=== PATIENT | male | born 1950 | race Caucasian/White ===

== ENCOUNTER 2018-04-29 11:19 | Emergency (ER) | payer MEDICARE, BC ==
[2018-04-29] MEDS ORDERED: Diltiazem IV* 5 MG/ML 5 ML VIAL (for loading dose/IV Push) (25 MG) IV SLOW PU ONE (11:36)
[2018-04-29] MEDS ORDERED: Diltiazem IV VIAL* 125 MG in NS 0.9% 100 ML* 100 ML IVPB ONE (11:36)
[2018-04-29] MEDS ORDERED: Apixaban* 5 MG TAB PO ONE (11:37)
--- NOTE | 2018-04-29 11:41 | ED ---
HPI Cardiac - HPI Summary HPI Summary: Patient is a 67 y/o M presenting to ED with complaints of palpitations onsetting last night. He states he was lying down when Sx onset. PMHx of afib x4 in the past 25 years. Hx of cardioversion for last episode of afib. This resolved afib. No Hx of ablation reported. He states that Sx were still present this morning. He measured his pulse this morning using home machine, went to PCP after it was noted he was tachycardic. PCP took EKG, stated that he "didn't like it", sent patient to ED. Chest pain, weakness, fatigue, diaphoresis is denied. He states that present Sx are similar to afib. Patient took metoprolol, amlodipine, losartan. On triage, pain is rated 0/10, nothing is noted to aggravate/alleviate Sx. Home medications, allergies, and nurses note reviewed. - History of Current Complaint Chief Complaint: EDDysrhythmPalp Stated Complaint: LOW BLOOD FLOW TO HEART Time Seen by Provider: 04/29/18 11:32 Hx Obtained From: Patient Onset/Duration: Started Days Ago - onset last night, Still Present Timing: Constant, Lasting Days - last night Current Severity: None Pain Intensity: 0 Pain Scale Used: 0-10 Numeric - 0/10 Chest Pain Radiates: No Character: Other: - palpitations Aggravating Factor(s): Nothing Alleviating Factor(s): Nothing Associated Signs and Symptoms: Positive: Palpitations, Other: - NEGATIVE - FATIGUE. Negative: Chest Pain, Weakness, Diaphoresis - Allergy/Home Medications Allergies/Adverse Reactions: Allergies Allergy/AdvReac Type Severity Reaction Status Date / Time No Known Allergies Allergy Verified 04/01/16 07:59 PMH/Surg Hx/FS Hx/Imm Hx Cardiovascular History: Reports: Hx Atrial Fibrillation, Hx Hypertension - CONTROL WITH MEDS History: Reports: Other Problems/Disorders - ENLARGE PROSTATE Musculoskeletal History: Reports: Hx Arthritis - BILATERAL FEET Sensory History: Reports: Hx Contacts or Glasses - READING GLASSES Denies: Hx Hearing Aid Opthamlomology History: Reports: Hx Contacts or Glasses - READING GLASSES Neurological History: Reports: Hx Nerve Disease - BILATERAL FEET NEUROPATHY - Surgical History Surgery Procedure, Year, and Place: 2012 TURP, [facility] Hx Anesthesia Reactions: No Infectious Disease History: No Infectious Disease History: Denies: Traveled Outside the [place] in Last 30 Days - Family History Known Family History: Negative: Blood Disorder - Social History Alcohol Use: Daily Substance Use Type: Reports: None Smoking Status (MU): Never Smoked Tobacco Review of Systems Positive: Other - NEGATIVE - WEAKNESS . Negative: Fatigue, Skin Diaphoresis Positive: Palpitations. Negative: Chest Pain All Other Systems Reviewed And Are Negative: Yes Physical Exam - Summary Physical Exam Summary: Appearance: Well appearing, no pain distress Skin: warm, dry, reflects adequate perfusion Head/face: normal Eyes: EOMI, FERNANDEZ ENT: mucous membranes moist Neck: supple, non-tender Respiratory: CTA, breath sounds present Cardiovascular: irregularly irregular and tachycardic, pulses symmetrical Abdomen: non-tender, soft Bowel Sounds: present Musculoskeletal: normal, strength/ROM intact Neuro: normal, sensory motor intact, A&Ox3 Triage Information Reviewed: Yes Vital Signs On Initial Exam: Initial Vitals Temp Pulse Resp BP Pulse Ox 98.3 F 128 17 155/77 99 04/29/18 11:22 04/29/18 11:22 04/29/18 11:22 04/29/18 11:22 04/29/18 11:22 Vital Signs Reviewed: Yes Procedures - Procedure Summary Procedure Summary: Procedural sedation and synchronized cardioversion: Reason: Cardioversion of atrial flutter Description: The patient was formally consented and a timeout was performed. The patient was placed on full cardiopulmonary monitoring eluding end-tidal CO2 monitoring. He was placed on oxygen. He was given 75 mg of propofol intravenously which created adequate sedation for cardioversion. Synchronized cardioversion was performed with a single shock at 100 J with anterior posterior pad placement. This was successful in converting him into normal sinus rhythm with a rate of 60. Total sedation time of 1 minute. He recovered very quickly and was able to be discharged shortly thereafter. There were no complications and he tolerated this well. - Additional Procedures Additional Procedures: cardioversion/defib - CARDIOVERSION RESULTED IN CONVERSION TO NSR Diagnostics - Vital Signs Vital Signs Temp Pulse Resp BP Pulse Ox 04/29/18 11:22 98.3 F 128 17 155/77 99 - Laboratory Result Diagrams: 04/29/18 10:46 04/29/18 10:46 Lab Statement: Any lab studies that have been ordered have been reviewed, and results considered in the medical decision making process. - Radiology CXR Radiology Interpretation Completed By: Radiologist Summary of Radiographic Findings: IMPRESSION: NO ACTIVE CARDIOPULMONARY DISEASE IS NOTED. THIS REPORT WAS REVIEWED BY ED PHYSICIAN. - EKG 1126 Cardiac Rate: Other Rate - rate of 127 BPM EKG Rhythm: Atrial Fibrillation - /atrial flutter ST Segment: Non-Specific Summary of EKG Findings: EKG showed atrial flutter/afib with rate of 127 BPM, normal axis, normal intervals, non-specific ST. 1204 Cardiac Rate: Other Rate - rate of 127 BPM EKG Rhythm: Atrial Flutter ST Segment: Non-Specific Summary of EKG Findings: EKG showed aflutter with rate of 127 BPM, normal axis, normal interval, non-specific ST 1207 Cardiac Rate: NL - rate of 64 BPM EKG Rhythm: Sinus Rhythm ST Segment: Normal Summary of EKG Findings: EKG after cardioversion showed NSR with rate of 64 BPM , normal axis, normal interval, normal ST Re-Evaluation - Re-Evaluation First Eval Re-Evaluation Time: 12:05 Change: Improved Comment: Patient was cardioverted with informed consent, patient converted to NSR. He will be discharged to home and follow up with principal systems architect, patient is agreeable with this. Disposition - Course Course Of Treatment: Nurse's notes reviewed. Patient with EKG appearing as atrial fibrillation/flutter it is also rapid. Rate controlled with diltiazem without any effect. Time of onset is known to be last evening. History of same in the past. Single dose of oral anticoagulant and cardioversion performed under conscious sedation. This cardioverted him into normal sinus rhythm. He did have slight bump in troponin with a creatinine of 1.22. Patient has no lingering chest pain, shortness of breath. There is no congestive heart failure. He is discharged to follow closely with primary care physician and principal systems architect. Will continue on his outpatient metoprolol. - Differential Dx - Cardiopulmonary Differential Diagnoses - Cardiopulmonary: Other - Atrial fibrillation, atrial flutter, SVT, V. tach - Diagnoses Provider Diagnoses: Atrial flutter, Elevated troponin I level - Critical Care Time Critical Care Time: 30-74 min - Critical care time is exclusive of separately billable procedures Discharge - Sign-Out/Discharge Documenting (check all that apply): Patient Departure - discharge - Discharge Plan Condition: Improved Disposition: HOME Patient Education Materials: Atrial Flutter (ED) Referrals: Didier Robertson MD [Primary Care Provider] - Christian Pritchett MD [Medical Doctor] - Additional Instructions: Call today to schedule follow-up with Dr. Pritchett. Avoid alcohol, caffeine. Get plenty of sleep. Continue to take your metoprolol twice a day. Return if worse , palpitations, new symptoms or other concerns. - Billing Disposition and Condition Condition: IMPROVED Disposition: Home - Attestation Statements Document Initiated by Cuauhtemoc: Yes Documenting Scribe: ANNETTE GIANG Provider For Whom Cuauhtemoc is Documenting (Include Credential): PRAVEEN ANTUNEZ MD Scribe Attestation: I, ANNETTE GIANG , scribed for PRAVEEN ANTUNEZ MD on 04/29/18 at 1310. Scribe Documentation Reviewed: Yes Provider Attestation: The documentation as recorded by the scribeANNETTE accurately reflects the service I personally performed and the decisions made by me, PRAVEEN ANTUNEZ MD Status of Scribe Document: Viewed
[2018-04-29 11:44] LABS: ABS Basophils 0.1 10^3/ul (0-0.2); ABS Eosinophils 0.1 10^3/ul (0-0.6); ABS Lymphocytes 1.2 10^3/ul (1.0-4.8); ABS Monocytes 0.7 10^3/ul (0-0.8); ABS Neutrophils 4.3 10^3/ul (1.5-7.7); ABS Nucleated RBC 0 10^3/ul; Eosinophil % 1.8 %; Hematocrit 42 % (42-52); Hemoglobin 14.5 g/dl (14.0-18.0); Lymphocyte % 18.3 %; Mean Corpuscular HGB Conc 35 g/dl (31-36); Mean Corpuscular Hemoglobin 35 pg (27-31); Mean Corpuscular Volume 102 fL (80-94); Mean Platelet Volume 8.7 fL (7.4-10.4); Nucleated Red Blood Cells % 0; Platelet Count 239 10^3/ul (150-450); Red Blood Count 4.15 10^6/ul (4.00-5.40); Red Cell Distribution Width 13 % (10.5-15); White Blood Count 6.4 10^3/ul (3.5-10.8)
[2018-04-29] MEDS ORDERED: Propofol* 500 MG/50 ML BTL ONE (11:53)
[2018-04-29 12:02] LABS: INR 0.85 (0.77-1.02)
[2018-04-29 12:03] LABS: Albumin 3.8 g/dL (3.2-5.2); Albumin/Globulin Ratio 1.1 (1-3); BUN/Creatinine Ratio 24.6 (8-20); Calcium 9.5 mg/dL (8.6-10.3); EGFR Non-African American 59.1 (>60); Globulin 3.6 g/dL (2-4); Magnesium 1.6 mg/dL (1.9-2.7); Total Bilirubin 0.5 mg/dL (0.2-1.0); Total Protein 7.4 g/dL (6.4-8.9)
[2018-04-29] MEDS ORDERED: Propofol* 10 MG/ML 20 ML BTL IV PUSH ONE (12:16)
[2018-04-29 12:57] LABS: TSH (Thyroid Stimulating Horm) 1.64 mcIU/mL (0.34-5.60)
[2018-04-29 13:00] VITALS: BP 151/82
--- OUTSIDE RECORDS SUMMARY | 2018-04-29 13:01 | XMS REPORT | Continuity of Care Document ---
:1950 External Reference #:[id number] Author Name Karlee Mao O.D. Address [address] [place] [address] Care Team Providers Name Role Phone Dideir Robertson M.D. Primary Care Physician Unavailable Payers Type Date Identification Numbers Payment Provider Subscriber Policy Number: [id number] Medicare - [facility] Didier Salty PayID: [id number] [address] [place] [address] Policy Number: [id number] [place] Plan Yesica Salty PayID: [id number] [address] [place] [address] Advance Directives Description No Information Available Problems Date Description Provider Status Onset: Essential hypertension Active Onset: 10/08/2014 Nuclear senile cataract Karlee Mao O.D. Active Onset: 10/08/2014 Presbyopia Karlee Mao O.D. Active Onset: 04/22/2018 Regular astigmatism Karlee Mao O.D. 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 ETOH Use Consumes 2-3 glasses of wine per day Tobacco Use Start: Unknown Patient has never smoked Recreational Drug Use Never Used Drugs Smoking Status Reviewed: 04/22/18 Patient has never smoked Allergies, Adverse Reactions, Alerts Description No Known Drug Allergies Medications Medication Date Status Form Strength Qnty SIG Indications Ordering Provider Bindu 04/21/ Active Capsules 720mg 2 tablets Unknown 2017 1x daily Glucosamine 04/21/ Active Tablets 1 tablet Unknown Chondroitin MSM 2017 3x daily Complex Vitamin D 04/21/ Active Tablets 1000Unit 1x daily Unknown (Cholecalciferol) 2017 Chlorthalidone / Active Tablets 50mg Robertson, 0000 Julio.Candace Metoprolol / Active Tablets 50mg Robertson, Tartrate 0000 Julio.Candace Amlodipine / Active Tablets 10mg Robertson, Besylate 0000 Julio.DTania Flax Seed Oil / Active Capsules 1000mg 1 by Unknown 0000 mouth every day Aspirin Ec / Active Tablets DR 325mg Unknown 0000 Preservision/Lute / Active Capsules Unknown in 0000 Losartan / Active Tablets 25mg Take One Unknown Potassium 0000 Tablet By Mouth Every Day Dutasteride / Active Capsules 0.5mg Vorha, 0000 William M.D. Amharic Ginseng / Hx Capsules 520mg Unknown 0000 - 2017 Immunizations Description No Information Available Vital Signs Description No Information Available Results Description No Information Available Procedures Date Code Description Status 10/08/2014 60015 Determination Of Refractive State Completed 10/08/2014 06589 New Patient Comprehensive Exam Completed 11/05/2010 58058 New Patient Comprehensive Exam Completed Encounters Description No Information Available Plan of Treatment 04/22/2018 - Karlee Mao O.D.H35.3131 Nonexudative age-related macular degeneration, bilateral, early dry stageComments:You have Macular Degeneration. Please take the AREDs 2 vitamin and check the amsler grid with each eye individually at least twice a week to closely monitor for vision change. If you notice a change invision, please call the office.Follow up:1 YEAR OCT MACH25.13 Age-related nuclear cataract, bilateralComments:You have nuclear sclerosis, which is hardening of your natural lens. This is normal as a person ages.H52.4 PresbyopiaComments:You have presbyopia. This is when the lens in your eye loses the ability to change focus, and happens as we age. A pair of reading glasses will help you see up close.
== END 2018-04-29 12:58 | disposition home or self-care (01) ==
LOC: ED 11:19
DX: I48.92 Unspecified atrial flutter (principal); R00.2 Palpitations; R79.89 Other specified abnormal findings of blood chemistry
CPT/HCPCS: 36415; 71045; 80053; 83605; 83735; 83880; 84443; 84484; 85025; 85610; 93005; 96374; 96375; 99284; J2704

== ENCOUNTER 2018-11-07 11:03 | Emergency (ER) | payer MEDICARE, BC ==
--- OUTSIDE RECORDS SUMMARY | 2018-11-07 11:19 | XMS REPORT | Continuity of Care Document ---
:1950 External Reference #:[id number] Author Name Joselyn Jones Care Team Providers Name Role Phone Didier Robertson M.D. Primary Care Physician Unavailable Payers Date Identification Numbers Payment Provider Subscriber Policy Number: [id number] Medicare Didier Gilert PayID: [id number] [address] [place] [address] Policy Number: [id number] [facility] Didier Gilert PayID: [id number] [address] [place] [address] Problems Active Problems Provider Date Neuropathy Rashard Garcia M.D. 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 Tobacco Use Start: Unknown End: Former Cigarette Smoker Unknown 5-10 Cigarettes Daily ETOH Use Currently consumes alcohol 2-3 daily Tobacco Use Start: Unknown Patient has never smoked Recreational Drug Use Denies Drug Use Tobacco Use Start: Unknown End: Patient is a former smoker Unknown Tobacco Use Start: Unknown Quit smoking in 1970 Smoking Status Reviewed: 10/14/18 Quit smoking in 1970 Exercise Type/Frequency Exercises regularly Exercise Type/Frequency Walks daily Allergies, Adverse Reactions, Alerts Description No Known Drug Allergies Medications Active Medications SIG Qnty Indications Ordering Date Provider Metoprolol Succinate 1 by mouth twice Christian DTania 07/15/2018 ER daily Brand, M.D. 25mg Tablets ER 24HR Furosemide Take One Tablet Didier Robertson, 07/11/2018 20mg Tablets By Mouth Every M.D. Morning For 14 Days Eliquis 1 by mouth twice 180tabs Christian D. 06/27/2018 5mg Tablets a day ( started Babar Pritchett [place] [facility] [place] 06/27/18 ) Flecainide Acetate 1 by mouth twice 180tabs Christian D. 06/27/2018 50mg a day ( started Babar Pritchett Tablets in [facility] 06/25[place]09 to 06/27/18) Vitamin B12 1 by mouth every 30tabs Tono S. 05/27/2018 2500mg day Harrington, DO FACC Tablets ER Slow Magnesium 2 tabs by mouth Unknown Chloride/ Calcium every daily ( started taking 70-117mg Tablets DR week of 07/10/18) Glucosamine 1 by mouth twice Unknown Chondroitin Complex a day 500-400mg Capsules Turmeric Curcumin take one Unknown capsule/tablet 5-1000mg Capsules daily by mouth Dutasteride 1 by mouth every Unknown 0.5mg day Capsules Losartan Potassium 1 by mouth every Unknown 25mg day Tablets Amlodipine Besylate 1 by mouth every Unknown 10mg day Tablets Chlorthalidone once a day Unknown 50mg Tablets Perservision one by mouth Unknown every day Black Currant Seed Oil one by mouth Unknown every day Flaxseed Oil 1 by mouth every Unknown 1000mg day Capsules Vitamin D-3 1 by mouth every Unknown 1000Unit day Capsules History Medications Yakut Ginseng one by mouth every Unknown - 05/03/2018 560mg Capsules day Aspirin 1 by mouth every day Unknown - 06/27/2018 325mg Tablets Multivitamins 1 by mouth every day Unknown - 05/31/2018 Capsules Metoprolol Tartrate 1 by mouth twice a Unknown - 07/15/2018 50mg Tablets day Vital Signs Date Vital Result Comment 10/14/2018 11:22am Height 72 inches 6'0" Weight 202.00 lb w/shoes Heart Rate 66 /min BP Systolic Sitting 140 mmHg Rue reg cuff BP Diastolic Sitting 76 mmHg Rue reg cuff Respiratory Rate 16 /min BMI (Body Mass Index) 27.4 kg/m2 07/15/2018 11:48am Height 72 inches 6'0" Weight 207.00 lb with shoes Heart Rate 58 /min BP Systolic Sitting 140 mmHg Lue reg cuff BP Diastolic Sitting 70 mmHg Lue reg cuff BP Systolic Standing 138 mmHg Lue reg cuff BP Diastolic Standing 70 mmHg Lue reg cuff Respiratory Rate 16 /min BMI (Body Mass Index) 28.1 kg/m2 Ejection Fraction 60-65% date 06/15/18 ECHO 06/08/2018 1:48pm Height 72 inches 6'0" Weight 205.00 lb no shoes Heart Rate 80 /min BP Systolic 160 mmHg rue reg cuff BP Diastolic 70 mmHg rue reg cuff BP Systolic Sitting 160 mmHg lue reg cuff BP Diastolic Sitting 70 mmHg lue reg cuff BP Systolic Standing 158 mmHg lue reg cuff BP Diastolic Standing 72 mmHg lue reg cuff Respiratory Rate 16 /min BMI (Body Mass Index) 27.8 kg/m2 01/18/2015 1:05pm Height 72 inches 6'0" Weight 205.00 lb Heart Rate 84 /min BP Systolic Sitting 138 mmHg BP Diastolic Sitting 80 mmHg Respiratory Rate 14 /min BMI (Body Mass Index) 27.8 kg/m2 01/09/2015 1:46pm Height 72 inches 6'0" Weight 202.00 lb Heart Rate 76 /min BP Systolic Sitting 132 mmHg BP Diastolic Sitting 78 mmHg Respiratory Rate 16 /min BMI (Body Mass Index) 27.4 kg/m2 Procedures Date Code Description Status 10/14/2018 55845 EKG Tracing & Interpretation Completed 07/15/2018 18528 EKG Tracing & Interpretation Completed 06/27/2018 02748 EKG, Interpretation Only Completed 06/27/2018 26908 Cardioversion Completed 06/25/2018 64651 EKG, Interpretation Only Completed 06/15/2018 29662 ECHO Transthoracic, Real-Time 2D With Doppler And Color Completed Flow 06/15/2018 19388 ECHO Transthoracic, Real-Time 2D With Doppler And Color Completed Flow 06/08/2018 55071 EKG Tracing & Interpretation Completed 01/18/2015 52174 Nerve Conduction 03-04 Studies Completed Encounters Type Date Location Provider Dx Diagnosis Office Visit 07/15/2018 [facility] Maria I48.0 Paroxysmal atrial 12:00p Alis Pritchett M.D. fibrillation Office Visit 06/27/2018 [facility] Steph I48.0 Paroxysmal atrial 10:00a [facility]oc,[facility] fibrillation Hospitalists I48.92 Unspecified atrial flutter I10 Essential (primary) hypertension N40.0 Benign prostatic hyperplasia without lower urinry tract symp Office Visit 06/27/2018 [facility] Christian Maria I48.92 Unspecified atrial 10:41a Of Alis Pritchett M.D. flutter Office Visit 06/26/2018 [facility] Qutaybeh S. I48.92 Unspecified atrial 11:35a pa Gamez M.D. Office Visit 06/26/2018 [facility] Steph I48.0 Paroxysmal atrial 9:59a [facility]oc,ger[place] fibrillation Hospitalists I10 Essential (primary) hypertension N40.0 Benign prostatic hyperplasia without lower urinry tract symp [facility] Atypical atrial Babar Gamez flutter R94.31 Abnormal electrocardiogram [ECG] [EKG] I10 Essential (primary) hypertension E83.42 Hypomagnesemia I34.0 Nonrheumatic mitral (valve) insufficiency I36.1 Nonrheumatic tricuspid (valve) insufficiency I27.20 Pulmonary hypertension, unspecified I71.9 Aortic aneurysm of unspecified site, without rupture Office Visit 06/25/2018 9:58a [facility] Treasure Espino I48.0 Paroxysmal atrial Assoc,pc N.P. fibrillation Hospitalists I10 Essential (primary) hypertension N40.0 Benign prostatic hyperplasia without lower urinry tract symp Office Visit 06/08/2018 2:00p [facility] Christian Maria I48.0 Paroxysmal atrial Of Alis Pritchett M.D. fibrillation I10 Essential (primary) hypertension Office Visit 01/09/2015 2:00p [facility] Rashard STania 356.8 Neuropathy Other Services Of Alis Garcia M.D. Spec Idiopathic Peripheral Plan of Treatment Future Appointment(s):04/14/2019 11:30 am - [facility] M.D. at [facility]10/14/2018 - Chirstian Pritchett M.D.I48.0 Paroxysmal atrial fibrillationFollow up:6 months
--- NOTE | 2018-11-07 11:20 | ED ---
Adult Trauma - HPI Summary HPI Summary: This pt is a 67 y/o male presenting to [facility] c/o low back pain s/p fall this morning. Pt reports he had a mechanical fall at around 04:00 today and landed on his left buttocks. He notes the step above him jammed into the left side of his back "pretty hard." Pt states his worse pain is on the right side of his lower back. Denies head strike or LOC. Pt reports he managed to stand up and get back into bed. Around 06:00 pt got out of bed and went to the bathroom. He denies urinary or bowel dysfunction, weakness, tingling, or numbness in LE, nausea, vomiting. Pt currently rates his lower back pain 4/10 in severity. Pt has taken Ibuprofen and an (11 years old) muscle relaxer. PMHx includes BPH, afib, HTN. - History of Current Complaint Stated Complaint: FELL/BACK INJURY PER PT Time Seen by Provider: 11/07/18 11:06 Hx Obtained From: Patient Mechanism of Injury: Fall Ambulatory at the Scene: Yes Loss of Consciousness: no loss of consciousness Onset/Duration: Started Hours Ago, Traumatic, Still Present Onset of Pain: Hours Current Severity: Moderate Pain Intensity: 4 Pain Scale Used: 0-10 Numeric Location: Back - low Character: Dull, Aching Aggravating Factor(s): Nothing Alleviating Factor(s): Other - position on the side Associated Signs & Symptoms: Negative: Fever, Nausea/Vomiting, Loss of Consciousness - Additional Pertinent History Primary Care Physician: [id number] - Allergy/Home Medications Allergies/Adverse Reactions: Allergies Allergy/AdvReac Type Severity Reaction Status Date / Time No Known Allergies Allergy Verified 06/25/18 07:38 Home Medications: Home Medications Black Currant Seed Oil 1,000 mg PO .BID-TID 11/07/18 [History Confirmed 11/07/18 ] Dutasteride (NF) [Avodart (NF)] 0.5 mg PO DAILY 11/07/18 [History Confirmed ] Metoprolol Tartrate TAB* [Lopressor TAB*] 50 mg PO BID 11/07/18 [History Confirmed 11/07/18] PMH/Surg Hx/FS Hx/Imm Hx Endocrine/Hematology History: Denies: Hx Diabetes Cardiovascular History: Reports: Hx Angina, Hx Atrial Fibrillation, Hx Hypertension - CONTROL WITH MEDS Denies: Hx Coronary Artery Disease, Hx Pacemaker/ICD, Hx Valvular Heart Disease Respiratory History: Denies: Hx Asthma, Hx Chronic Obstructive Pulmonary Disease (COPD) History: Reports: Hx Benign Prostatic Hyperplasia, Other Problems/ Disorders - ENLARGE PROSTATE Denies: Hx Chronic Renal Failure Musculoskeletal History: Reports: Hx Arthritis - BILATERAL FEET Sensory History: Reports: Hx Contacts or Glasses - READING GLASSES Denies: Hx Hearing Aid Opthamlomology History: Reports: Hx Contacts or Glasses - READING GLASSES Neurological History: Reports: Hx Nerve Disease - BILATERAL FEET NEUROPATHY - Surgical History Surgical History: Yes Surgery Procedure, Year, and Place: 2012 TURP, [facility] Hx Anesthesia Reactions: No - Family History Known Family History: Negative: Blood Disorder Family History: Mother with pancreatic CA. - Social History Alcohol Use: Daily Alcohol Amount: 20-30 drinks a week Substance Use Type: Reports: None Smoking Status (MU): Never Smoked Tobacco Review of Systems Negative: Fever Negative: Vomiting, Nausea Negative: incontinence - urinary or bowel Musculoskeletal: Other - POSITIVE: lower back pain Negative: Weakness, Paresthesia, Numbness All Other Systems Reviewed And Are Negative: Yes Physical Exam - Summary Physical Exam Summary: VITAL SIGNS: Reviewed. GENERAL: Patient is a well-developed and nourished male who is lying comfortable in the stretcher. Patient is not in any acute respiratory distress. HEAD AND FACE: No signs of trauma. No ecchymosis, hematomas or skull depressions. No sinus tenderness. EYES: PERRLA, EOMI x 2, No injected conjunctiva, no nystagmus. EARS: Hearing grossly intact. Ear canals and tympanic membranes are within normal limits. MOUTH: Oropharynx within normal limits. NECK: Supple, trachea is midline, no adenopathy, no JVD, no carotid bruit, no c- spine tenderness, neck with full ROM. CHEST: Symmetric, no tenderness at palpation LUNGS: Clear to auscultation bilaterally. No wheezing or crackles. CVS: Regular rate and rhythm, S1 and S2 present, no murmurs or gallops appreciated. ABDOMEN: Soft, non-tender. No signs of distention. No rebound, no guarding, and no masses palpated. Bowel sounds are normal. EXTREMITIES: Hematoma and bruising in left paraspinal area of the T and L spine. He has tenderness in the right paraspinal muscles. Tenderness on the right side of the gluteus. NEURO: Alert and oriented x 3. No acute neurological deficits. Speech is normal and follows commands. SKIN: Dry and warm Triage Information Reviewed: Yes Vital Signs On Initial Exam: Initial Vitals Temp Pulse Resp BP Pulse Ox 97.5 F 77 14 142/91 97 11/07/18 11:08 11/07/18 11:08 11/07/18 11:08 11/07/18 11:08 11/07/18 11:08 Vital Signs Reviewed: Yes Diagnostics - Laboratory Lab Statement: Any lab studies that have been ordered have been reviewed, and results considered in the medical decision making process. - Radiology Lumbar spine XR Radiology Interpretation Completed By: Radiologist Summary of Radiographic Findings: IMPRESSION: No evidence for fracture. Dr. Hazel has reviewed this report. Sacrum and Coccyx XR Radiology Interpretation Completed By: Radiologist Summary of Radiographic Findings: IMPRESSION: No evidence for fracture. Dr. Hazel has reviewed this report. Thoracic spine XR Radiology Interpretation Completed By: Radiologist Summary of Radiographic Findings: IMPRESSION: 1. No appreciable fracture or traumatic malalignment of the thoracic spine by radiograph. 2. Osteopenia. Dr. Hazel has reviewed this report. - CT Lumbar spine CT CT Interpretation Completed By: Radiologist Summary of CT Findings: IMPRESSION: 1. There is nondisplaced anterior column fracture of L1 with minimal, if any, vertebral body height loss. No body retropulsion or significant paraspinal hematomas identified. 2. Osteopenia. 3. 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 Dr. Hazel has reviewed this report. Re-Evaluation - Re-Evaluation First Eval Re-Evaluation Time: 14:09 Comment: Pt is still complaining of pain. Will order a CT. Adult Trauma Course/Dx - Course Assessment/Plan: This pt is a 67 y/o male presenting to [facility] c/o low back pain s/p fall this morning. Pt reports he had a mechanical fall at around 04:00 today and landed on his left buttocks. He notes the step above him jammed into the left side of his back "pretty hard." Pt states his worse pain is on the right side of his lower back. Denies head strike or LOC. Pt reports he managed to stand up and get back into bed. Around 06:00 pt got out of bed and went to the bathroom. He denies urinary or bowel dysfunction, weakness, tingling, or numbness in LE, nausea, vomiting. Pt currently rates his lower back pain 4/10 in severity. Pt has taken Ibuprofen and an (11 years old) muscle relaxer. PMHx includes BPH, afib, HTN. L Spine x-ray IMPRESSION: NO EVIDENCE FOR FRACTURE. Sacrum / Coccyx x-ray IMPRESSION: NO EVIDENCE FOR FRACTURE. T spine x-ray IMPRESSION: 1. No appreciable fracture or traumatic malalignment of the thoracic spine by radiograph. 2. Osteopenia. In the ED the patient was given morphine, Zofran for the pain. After these medications the patient continues to have pain. Therefore I decided to get a lumbar spine CT. CT IMPRESSION: 1. There is a nondisplaced anterior column fracture of L1 with minimal, if any, vertebral body height loss. No bony retropulsion or significant paraspinal hematomas identified. 2. Osteopenia. 3. Congenital narrowing of the spinal canal with varying degrees of multilevel spondylosis results in up to moderate spinal canal stenosis at L3-L4 and moderate to severe multilevel neural foraminal stenosis as above. Patient was given morphine and Valium for the spasm. After these medications the patients symptoms have significantly improved. Patient is able to ambulate on his own with minimal pain. Therefore the patient will be discharged home with follow-up from neurosurgery. Patient is hemodynamically stable, alert and oriented 3. - Diagnoses Provider Diagnoses: L1 vertebral fracture Discharge - Sign-Out/Discharge Documenting (check all that apply): Patient Departure - Discharge home Patient Received Moderate/Deep Sedation with Procedure: No - Discharge Plan Condition: Stable Disposition: HOME Prescriptions: Diazepam TAB(*) [Valium TAB(*)] 5 mg PO BID PRN #10 tab MDD 2 PRN Reason: Spasms - Back Hydrocodone/Acetaminophen [[place] 5-325 Tablet] 1 each PO Q6H PRN #10 tablet MDD 4 PRN Reason: Pain Patient Education Materials: Thoracolumbar Fracture (ED) Referrals: Didier Robertson MD [Primary Care Provider] - Jaylen Blake MD [Medical Doctor] - Additional Instructions: Follow up with Dr. Blake, neurosurgeon. FOLLOW UP WITH YOUR PRIMARY CARE PROVIDER WITHIN 2-3 DAYS. RETURN TO THE ED FOR ANY NEW OR WORSENING SYMPTOMS. - Billing Disposition and Condition Condition: STABLE Disposition: Home - Attestation Statements Document Initiated by Cuauhtemoc: Yes Documenting Scribe: Dian Reid Provider For Whom Cuauhtemoc is Documenting (Include Credential): Lonnie Hazel MD Scribe Attestation: IDian, scribed for Lonnie Hazel MD on 11/07/18 at 2032. Scribe Documentation Reviewed: Yes Provider Attestation: The documentation as recorded by the Dian vyas accurately reflects the service I personally performed and the decisions made by , Lonnie Hazel MD Status of Scrgénesise Document: Viewed
[2018-11-07] MEDS ORDERED: Morphine 4 MG/ML VIAL (1 ml) 4 MG/ML VIAL IV ONE ×2 (11:26→14:10)
[2018-11-07] MEDS ORDERED: Ondansetron INJ* 2 MG/ML VIAL IV ONE (11:26)
[2018-11-07] MEDS ORDERED: NS 0.9% 1000 ML** 1,000 ML IV ONE (11:26)
[2018-11-07] MEDS ORDERED: Diazepam TAB(*) 5 MG PO ONE (14:10)
[2018-11-07 16:23] VITALS: BP 147/86
== END 2018-11-07 16:23 | disposition home or self-care (01) ==
LOC: ED 11:03
DX: S32.019A Unspecified fracture of first lumbar vertebra, initial encounter for closed fracture (principal); W19.XXXA Unspecified fall, initial encounter; Y92.009 Unspecified place in unspecified non-institutional (private) residence as the place of occurrence of the external cause; N40.0 Benign prostatic hyperplasia without lower urinary tract symptoms; I48.91 Unspecified atrial fibrillation; I10 Essential (primary) hypertension; Z79.899 Other long term (current) drug therapy
CPT/HCPCS: 72070; 72100; 72131; 72220; 96361; 96374; 96375; 96376; 99283; A9270-GY; J2270; J2405